=== PATIENT | male | born 1980 | race American Indian/Alaskan Native ===

== ENCOUNTER 2019-02-16 19:08 | Emergency (ER) | payer OTHER ==
[2019-02-16 20:00] LABS: Basophils # (Auto) 0.1 K/mm3 (0.0-0.1); Eosinophils % (Auto) 0.4 % (0.0-4.3); Hematocrit 40.8 % (35.5-45.6); Lymphocytes # (Auto) 2.3 K/mm3 (1.2-5.4); Lymphocytes % (Auto) 43.2 % (13.4-35.0); Mean Corpuscular HGB Conc 34 % (32-34); Mean Corpuscular Volume 94 fl (84-94); Monocytes # (Auto) 0.4 K/mm3 (0.0-0.8); Monocytes % (Auto) 7.2 % (0.0-7.3); Platelet Count 308 K/mm3 (140-440); Red Blood Count 4.33 M/mm3 (3.65-5.03); Red Cell Distribution Width 14.3 % (13.2-15.2)
[2019-02-16 20:13] LABS: Alanine Aminotransferase 130 units/L (7-56); Albumin 4.5 g/dL (3.9-5); BUN/Creatinine Ratio 9; Blood Urea Nitrogen 8 mg/dL (9-20); Calcium 8.8 mg/dL (8.4-10.2); Hemolysis Index 29
[2019-02-16 21:44] LABS: Bilirubin,Urine NEG (Negative); Blood,Urine NEG (Negative); Color,Urine Straw (Yellow); Mucus,Urine FEW /HPF; Protein,Urine <15 mg/dL mg/dL (Negative); Urobilinogen,Urine < 2.0 mg/dL (<2.0); WBC,Urine < 1.0 /HPF (0.0-6.0)
[2019-02-16] MEDS ORDERED: PEPCID IV ONE (21:49)
[2019-02-16] MEDS ORDERED: LIBRIUM PO ONE (21:49)
[2019-02-16] MEDS ORDERED: NACL 0.9% 1000 ML 1,000 ML IV ONE (21:49)
[2019-02-16] MEDS ORDERED: ZOFRAN IV ONE (21:49)
[2019-02-16] MEDS ORDERED: MORPHINE IV ONE (21:49)
--- NOTE | 2019-02-16 21:53 | Emergency Department Report ---
ED Abdominal Pain HPI - General Chief Complaint: Abdominal Pain Stated Complaint: ABD PAIN X 6 MONTHS Time Seen by Provider: 02/16/19 21:48 Source: patient Mode of arrival: Ambulatory Limitations: No Limitations - History of Present Illness Initial Comments: Mr. Lee is a 39-year-old male with history of alcohol abuse who presents with 6 months of abdominal pain. Recently he had several episodes of hematemesis. He now has severe central abdominal pain. No association with food or drink. Last drink of beer 3 hours ago. 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 He admitted that alcohol was the reason for his current unemployment. He drinks beer throughout the day. He even drinks in morning upon awakening. Now he drinks to keep the shakes away. He currently feels shaky. There is a history of alcoholism in the family. He does smoke tobacco. MD Complaint: abdominal pain -: Gradual, month(s) (6) Location: diffuse Radiation: none Severity: severe Quality: cramping, stabbing, aching Consistency: intermittent Improves With: nothing, bowel movement Associated Symptoms: nausea, vomiting, hematemesis - Related Data Previous Rx's Medication Instructions Recorded Last Taken Type HYDROcodone/APAP 5-325 [[place] 1 each PO Q6HR PRN #14 tablet 03/16/16 Unknown Rx 5/325] Lansoprazole [Prevacid] 15 mg PO BID #30 cap 03/16/16 Unknown Rx Famotidine [Pepcid] 20 mg PO BID 30 Days #60 tablet 02/16/19 Unknown Rx chlordiazePOXIDE [Librium] 25 mg PO Q6H 7 Days #28 capsule 02/16/19 Unknown Rx Allergies Allergy/AdvReac Type Severity Reaction Status Date / Time No Known Allergies Allergy Verified 03/16/16 00:51 ED Review of Systems ROS: Stated complaint: ABD PAIN X 6 MONTHS Other details as noted in HPI Comment: All other systems reviewed and negative Constitutional: denies: fever, malaise Respiratory: denies: cough Cardiovascular: denies: chest pain Gastrointestinal: abdominal pain, nausea, vomiting, hematemesis ED Past Medical Hx - Past Medical History Previous Medical History?: No - Surgical History Past Surgical History?: No - Social History Smoking Status: Current Every Day Smoker Substance Use Type: Alcohol, Cocaine, Marijuana - Medications Home Medications: Home Medications Medication Instructions Recorded Confirmed Last Taken Type HYDROcodone/APAP 5-325 [[place] 1 each PO Q6HR PRN #14 tablet 03/16/16 Unknown Rx 5/325] Lansoprazole [Prevacid] 15 mg PO BID #30 cap 03/16/16 Unknown Rx Famotidine [Pepcid] 20 mg PO BID 30 Days #60 tablet 02/16/19 Unknown Rx chlordiazePOXIDE [Librium] 25 mg PO Q6H 7 Days #28 capsule 02/16/19 Unknown Rx ED Physical Exam - General Limitations: No Limitations General appearance: alert, in no apparent distress - Head Head exam: Present: atraumatic, normocephalic - Eye Eye exam: Present: normal appearance - ENT ENT exam: Present: mucous membranes moist - Neck Neck exam: Present: normal inspection, full ROM - Respiratory Respiratory exam: Present: normal lung sounds bilaterally. Absent: respiratory distress, wheezes, rales, rhonchi - Cardiovascular Cardiovascular Exam: Present: regular rate, normal rhythm, normal heart sounds. Absent: systolic murmur, diastolic murmur, rubs, gallop - GI/Abdominal GI/Abdominal exam: Present: soft, normal bowel sounds. Absent: distended, tenderness, guarding - Rectal Rectal exam: Present: deferred - Extremities Exam Extremities exam: Present: normal inspection - Back Exam Back exam: Present: normal inspection - Neurological Exam Neurological exam: Present: alert, oriented X3 - Psychiatric Psychiatric exam: Present: normal affect, normal mood - Skin Skin exam: Present: warm, dry, intact, normal color. Absent: rash ED Course Vital Signs 02/16/19 02/16/19 02/16/19 19:24 21:47 21:51 Temperature 98.4 F Pulse Rate 95 H Respiratory 20 18 Rate Blood Pressure 140/79 Blood Pressure [Left] O2 Sat by Pulse 97 98 98 Oximetry 02/16/19 02/16/19 02/16/19 21:55 22:00 22:20 Temperature 98.6 F Pulse Rate 76 71 Respiratory 14 18 Rate Blood Pressure 112/70 112/70 Blood Pressure 124/68 [Left] O2 Sat by Pulse 99 95 99 Oximetry 02/16/19 02/16/19 02/16/19 22:30 22:46 22:47 Temperature Pulse Rate Respiratory 18 Rate Blood Pressure 113/67 118/73 Blood Pressure [Left] O2 Sat by Pulse 92 100 Oximetry ED Medical Decision Making - Lab Data Result diagrams: 02/16/19 19:42 02/16/19 19:42 - Radiology Data Radiology results: report reviewed CT abdomen and pelvis without acute process - Medical Decision Making Mr. Lee presents with 6 months of nausea vomiting. Transient hematemesis. I suspect alcoholic gastritis as the cause of his symptoms. Also early alcoholic liver disease noted with elevated transaminases. I strongly suggested cessation of alcohol use. Complete abstinence. I also recommended outpatient alcohol substance abuse treatment. Prescribed Librium for alcohol withdrawal symptoms, famotidine for possible peptic ulcer disease. Critical care attestation.: If time is entered above; I have spent that time in minutes in the direct care of this critically ill patient, excluding procedure time. ED Disposition Clinical Impression: Alcoholic liver disease, Alcoholism, Alcoholic gastritis Disposition: - TO HOME OR SELFCARE Is pt being admited?: No Does the pt Need Aspirin: No Condition: Stable Instructions: Abuse of Alcohol (ED), Gastritis (ED) Additional Instructions: Your labs reveal liver damage. Please seek help for alcoholism. Prescriptions: chlordiazePOXIDE [Librium] 25 mg PO Q6H 7 Days #28 capsule Famotidine [Pepcid] 20 mg PO BID 30 Days #60 tablet Referrals: CHAZ ODONNELL MD [Primary Care Provider] - 3-5 Days
[2019-02-16 22:49] VITALS: BP 118/73
--- NOTE | 2019-02-16 22:58 | Cat Scan Report ---
PROCEDURE: CT abdomen and pelvis without contrast. TECHNIQUE: Computerized axial tomography of the abdomen and pelvis was performed without intravenous contrast. This study is performed without intravascular contrast material and its sensitivity for ab dominal and pelvic pathology, including neoplasms, inflammation, abscess, free fluid, thrombosis, art erial dissection and infarction, is reduced compared with a contrast enhanced study. CT DOSE LENGTH PRODUCT: 604.8 mGycm HISTORY: Abdominal pain. COMPARISONS: CT abdomen and pelvis 03/15/2016. Dictation not available. FINDINGS: The lung bases are clear. There are no pleural effusions. The heart size is normal. The liver, pancre as and spleen are grossly normal. The gallbladder is present. There is no biliary dilatation. The adr enal glands are not enlarged. Both kidneys appear normal in size and configuration. The abdominal aor ta has a normal caliber. There is no retroperitoneal adenopathy. The unopacified gastrointestinal tra ct is unremarkable. I believe there is a normal appendix visible. The bladder, seminal vesicles and p rostate appear normal. The regional skeleton appears intact. IMPRESSION: Normal unenhanced studies of the abdomen and pelvis. This document is electronically signed by Yvan Black MD., February 16 2019 10:56:51 PM ET
== END 2019-02-17 01:52 | disposition home or self-care (01) ==
LOC: ED 19:08
DX: K29.20 Alcoholic gastritis without bleeding (principal); K70.9 Alcoholic liver disease, unspecified; F17.200 Nicotine dependence, unspecified, uncomplicated; F12.10 Cannabis abuse, uncomplicated; F14.10 Cocaine abuse, uncomplicated; Z79.899 Other long term (current) drug therapy
CPT/HCPCS: 36415; 74176; 80053; 81001; 83690; 85025; 96361; 96374; 96375; 99284; J2270; J2405; J7030

== ENCOUNTER 2019-03-09 23:17 | Emergency (ER) | payer SELFPAY ==
[2019-03-10 00:09] LABS: Basophils % (Auto) 0.2 % (0.0-1.8); Eosinophils % (Auto) 0.6 % (0.0-4.3); Hematocrit 40.8 % (35.5-45.6); Hemoglobin 13.8 gm/dl (11.8-15.2); Lymphocytes % (Auto) 40.4 % (13.4-35.0); Mean Corpuscular HGB Conc 34 % (32-34); Mean Corpuscular Hemoglobin 32 pg (28-32); Mean Corpuscular Volume 94 fl (84-94); Monocytes # (Auto) 0.4 K/mm3 (0.0-0.8); Monocytes % (Auto) 7.7 % (0.0-7.3); Platelet Count 310 K/mm3 (140-440); Red Blood Count 4.33 M/mm3 (3.65-5.03); Red Cell Distribution Width 14.7 % (13.2-15.2)
[2019-03-10] MEDS ORDERED: PROTONIX IV ONE (00:11)
[2019-03-10 00:26] LABS: Alanine Aminotransferase 38 units/L (7-56); Albumin 4.5 g/dL (3.9-5); BUN/Creatinine Ratio 11; Blood Urea Nitrogen 10 mg/dL (9-20); Calcium 8.9 mg/dL (8.4-10.2); Hemolysis Index 21
[2019-03-10] MEDS ORDERED: NACL 0.9% 1000 ML 1,000 ML IV ONE (01:35)
[2019-03-10] MEDS ORDERED: LIBRIUM PO PRN (01:35)
[2019-03-10] MEDS ORDERED: ATIVAN IV PRN ×3 (01:35)
--- NOTE | 2019-03-10 01:43 | Cat Scan Report ---
CT ABDOMEN AND PELVIS WITHOUT CONTRAST HISTORY: Lower abdominal pain with nausea and vomiting. COMPARISON: CT of the abdomen and pelvis without contrast from 02/16/2019. TECHNIQUE: Axial, coronal and sagittal CT imaging of the abdomen and pelvis was performed without co ntrast. Lack of intravenous contrast limits evaluation of the vascular and solid organs. All CT sca ns at this location are performed using CT dose reduction for ALARA by means of automated exposure co ntrol. FINDINGS: LOWER CHEST: No significant abnormality. LIVER: Enlarged without an additional significant abnormality. BILIARY: No significant abnormality. PANCREAS: No significant abnormality. SPLEEN: Small than expected for a patient of this age without an additional significant abnormality. ADRENALS: No significant abnormality. KIDNEYS AND URETERS: No significant abnormality. GI TRACT: No significant abnormality of the stomach, small bowel or colon. Unremarkable appendix. PERITONEUM: No free fluid. No free air. No fluid collection. LYMPH NODES: No significant adenopathy. VASCULATURE: The aorta is normal in caliber. URINARY BLADDER: No significant abnormality. REPRODUCTIVE ORGANS: No significant abnormality. ADDITIONAL FINDINGS: None. SKELETAL SYSTEM: No significant abnormality. IMPRESSION: No acute abnormality of the abdomen or pelvis. Signer Name: Jesus Liu MD Signed: 03/10/2019 1:39 AM Workstation Name: [id number]
--- NOTE | 2019-03-10 01:52 | Emergency Department Report ---
ED General Adult HPI - General Chief complaint: Abdominal Pain Stated complaint: ABD PAIN Time Seen by Provider: 03/09/19 23:32 Source: patient, EMS Mode of arrival: Stretcher Limitations: No Limitations - History of Present Illness Initial comments: Patient presents to the emergency department with a chief complaint alcohol abuse. Patient states he drinks 324 ounce cans of beer daily and wants to stop drinking. Patient states at times he feels that the world be better without them. Patient states that he is also having some abdominal pain and one episode of emesis with blood in it today. Patient is asking for detox from alcohol. -: Gradual Location: abdomen Radiation: non-radiation Severity scale (0 -10): 5 Quality: burning Consistency: constant Improves with: none Worsens with: none Associated Symptoms: denies other symptoms Treatments Prior to Arrival: none - Related Data Previous Rx's Medication Instructions Recorded Last Taken Type HYDROcodone/APAP 5-325 [[place] 1 each PO Q6HR PRN #14 tablet 03/16/16 Unknown Rx 5/325] Lansoprazole [Prevacid] 15 mg PO BID #30 cap 03/16/16 Unknown Rx Famotidine [Pepcid] 20 mg PO BID 30 Days #60 tablet 02/16/19 Unknown Rx chlordiazePOXIDE [Librium] 25 mg PO Q6H 7 Days #28 capsule 02/16/19 Unknown Rx Allergies Allergy/AdvReac Type Severity Reaction Status Date / Time No Known Allergies Allergy Verified 03/16/16 00:51 ED Review of Systems ROS: Stated complaint: ABD PAIN Other details as noted in HPI Comment: All other systems reviewed and negative Constitutional: denies: chills, fever Eyes: denies: eye pain, eye discharge, vision change ENT: denies: ear pain, throat pain Respiratory: denies: cough, shortness of breath, wheezing Cardiovascular: denies: chest pain, palpitations Endocrine: no symptoms reported Gastrointestinal: abdominal pain. denies: nausea, diarrhea Genitourinary: denies: urgency, dysuria Musculoskeletal: denies: back pain, joint swelling, arthralgia Skin: denies: rash, lesions Neurological: denies: headache, weakness, paresthesias Psychiatric: denies: anxiety, depression Hematological/Lymphatic: denies: easy bleeding, easy bruising ED Past Medical Hx - Past Medical History Hx Liver Disease: Yes - Surgical History Past Surgical History?: No - Social History Smoking Status: Current Every Day Smoker Substance Use Type: Alcohol, Cocaine - Medications Home Medications: Home Medications Medication Instructions Recorded Confirmed Last Taken Type HYDROcodone/APAP 5-325 [[place] 1 each PO Q6HR PRN #14 tablet 03/16/16 Unknown Rx 5/325] Lansoprazole [Prevacid] 15 mg PO BID #30 cap 03/16/16 Unknown Rx Famotidine [Pepcid] 20 mg PO BID 30 Days #60 tablet 02/16/19 Unknown Rx chlordiazePOXIDE [Librium] 25 mg PO Q6H 7 Days #28 capsule 02/16/19 Unknown Rx ED Physical Exam - General Limitations: No Limitations General appearance: alert, in no apparent distress, other (patient appears very intoxicated) - Head Head exam: Present: atraumatic, normocephalic - Eye Eye exam: Present: normal appearance - ENT ENT exam: Present: mucous membranes dry - Neck Neck exam: Present: normal inspection - Respiratory Respiratory exam: Present: normal lung sounds bilaterally. Absent: respiratory distress - Cardiovascular Cardiovascular Exam: Present: regular rate, normal rhythm. Absent: systolic murmur, diastolic murmur, rubs, gallop - GI/Abdominal GI/Abdominal exam: Present: soft, normal bowel sounds. Absent: distended, tenderness - Rectal Rectal exam: Present: deferred - Extremities Exam Extremities exam: Present: normal inspection - Back Exam Back exam: Present: normal inspection - Neurological Exam Neurological exam: Present: alert, oriented X3, CN II-XII intact. Absent: motor sensory deficit - Psychiatric Psychiatric exam: Present: normal affect, normal mood - Skin Skin exam: Present: warm, dry, intact, normal color. Absent: rash ED Course Vital Signs 03/09/19 03/09/19 03/10/19 23:31 23:32 00:00 Temperature 98.2 F Pulse Rate 94 H 84 Respiratory 16 15 Rate Blood Pressure 122/81 O2 Sat by Pulse 97 97 Oximetry 03/10/19 03/10/19 00:30 00:54 Temperature Pulse Rate 98 H Respiratory 12 17 Rate Blood Pressure 116/74 O2 Sat by Pulse 97 100 Oximetry ED Medical Decision Making - Lab Data Result diagrams: 03/09/19 23:45 03/09/19 23:45 Lab Results 07/19/19 07/19/19 07/19/19 Range/Units 23:45 23:45 23:45 WBC 5.0 (4.5-11.0) K/mm3 RBC 4.33 (3.65-5.03) M/mm3 Hgb 13.8 (11.8-15.2) gm/dl Hct 40.8 (35.5-45.6) % MCV 94 (84-94) fl MCH 32 (28-32) pg MCHC 34 (32-34) % RDW 14.7 (13.2-15.2) % Plt Count 310 (140-440) K/mm3 Lymph % (Auto) 40.4 H (13.4-35.0) % [place] % (Auto) 7.7 H (0.0-7.3) % Eos % (Auto) 0.6 (0.0-4.3) % Baso % (Auto) 0.2 (0.0-1.8) % Lymph # 2.0 (1.2-5.4) K/mm3 [place] # 0.4 (0.0-0.8) K/mm3 Eos # 0.0 (0.0-0.4) K/mm3 Baso # 0.0 (0.0-0.1) K/mm3 Seg Neutrophils % 51.1 (40.0-70.0) % Seg Neutrophils # 2.6 (1.8-7.7) K/mm3 Sodium 145 (137-145) mmol/L Potassium 4.0 (3.6-5.0) mmol/L Chloride 105.2 (98-107) mmol/L Carbon Dioxide 24 (22-30) mmol/L Anion Gap 20 mmol/L BUN 10 (9-20) mg/dL Creatinine 0.9 (0.8-1.5) mg/dL Estimated GFR > 60 ml/min BUN/Creatinine Ratio 11 % Glucose 88 (75-100) mg/dL Calcium 8.9 (8.4-10.2) mg/dL Total Bilirubin 0.30 (0.1-1.2) mg/dL AST 52 H (5-40) units/L ALT 38 (7-56) units/L Alkaline Phosphatase 60 (35-129) units/L Total Protein 7.9 (6.3-8.2) g/dL Albumin 4.5 (3.9-5) g/dL Albumin/Globulin Ratio 1.3 % Lipase 20 (13-60) units/L Plasma/Serum Alcohol (0-0.07) % 03/10/19 Range/Units 00:17 WBC (4.5-11.0) K/mm3 RBC (3.65-5.03) M/mm3 Hgb (11.8-15.2) gm/dl Hct (35.5-45.6) % MCV (84-94) fl MCH (28-32) pg MCHC (32-34) % RDW (13.2-15.2) % Plt Count (140-440) K/mm3 Lymph % (Auto) (13.4-35.0) % [place] % (Auto) (0.0-7.3) % Eos % (Auto) (0.0-4.3) % Baso % (Auto) (0.0-1.8) % Lymph # (1.2-5.4) K/mm3 [place] # (0.0-0.8) K/mm3 Eos # (0.0-0.4) K/mm3 Baso # (0.0-0.1) K/mm3 Seg Neutrophils % (40.0-70.0) % Seg Neutrophils # (1.8-7.7) K/mm3 Sodium (137-145) mmol/L Potassium (3.6-5.0) mmol/L Chloride (98-107) mmol/L Carbon Dioxide (22-30) mmol/L Anion Gap mmol/L BUN (9-20) mg/dL Creatinine (0.8-1.5) mg/dL Estimated GFR ml/min BUN/Creatinine Ratio % Glucose (75-100) mg/dL Calcium (8.4-10.2) mg/dL Total Bilirubin (0.1-1.2) mg/dL AST (5-40) units/L ALT (7-56) units/L Alkaline Phosphatase (35-129) units/L Total Protein (6.3-8.2) g/dL Albumin (3.9-5) g/dL Albumin/Globulin Ratio % Lipase (13-60) units/L Plasma/Serum Alcohol 0.30 H (0-0.07) % - Medical Decision Making 2013 applied Placed on [facility] protocol Critical care attestation.: If time is entered above; I have spent that time in minutes in the direct care of this critically ill patient, excluding procedure time. ED Disposition Clinical Impression: Acute alcohol abuse Disposition: DC/TX-65 PSY HOSP/PSY UNIT Is pt being admited?: No Does the pt Need Aspirin: No Condition: Stable Instructions: Abuse of Alcohol (ED) Referrals: CHAZ ODONNELL MD [Primary Care Provider] - 3-5 Days
[2019-03-10 03:22] LABS: Bilirubin,Urine NEG (Negative); Blood,Urine NEG (Negative); Color,Urine Yellow (Yellow); Mucus,Urine FEW /HPF; Protein,Urine <15 mg/dL mg/dL (Negative); RBC,Urine < 1.0 /HPF (0.0-6.0); Urobilinogen,Urine < 2.0 mg/dL (<2.0)
[2019-03-10 15:33] VITALS: BP 128/78
== END 2019-03-10 15:00 | disposition home or self-care (01) ==
LOC: ED 23:17
DX: F10.120 Alcohol abuse with intoxication, uncomplicated (principal); F17.200 Nicotine dependence, unspecified, uncomplicated; F14.10 Cocaine abuse, uncomplicated
CPT/HCPCS: 36415; 74176; 80053; 81001; 83690; 85025; 96361; 96374; 96375; 99285; C9113; J2060; 80320; G0480

== ENCOUNTER 2019-03-12 02:55 | Emergency (ER) | payer SELFPAY ==
[2019-03-12 04:26] LABS: Basophils # (Auto) 0.2 K/mm3 (0.0-0.1); Basophils % (Auto) 2.9 % (0.0-1.8); Eosinophils # (Auto) 0.1 K/mm3 (0.0-0.4); Hematocrit 38.6 % (35.5-45.6); Hemoglobin 13.5 gm/dl (11.8-15.2); Lymphocytes # (Auto) 2.6 K/mm3 (1.2-5.4); Lymphocytes % (Auto) 36.9 % (13.4-35.0); Mean Corpuscular HGB Conc 35 % (32-34); Mean Corpuscular Volume 95 fl (84-94); Monocytes # (Auto) 0.3 K/mm3 (0.0-0.8); Monocytes % (Auto) 3.6 % (0.0-7.3); Platelet Count 315 K/mm3 (140-440); Red Blood Count 4.05 M/mm3 (3.65-5.03); Red Cell Distribution Width 14.2 % (13.2-15.2)
[2019-03-12 04:35] LABS: INR 1.03 (0.87-1.13)
[2019-03-12 04:36] LABS: Partial Thromboplastin Time 23.7 Sec. (24.2-36.6)
[2019-03-12 04:40] LABS: BUN/Creatinine Ratio 11; Blood Urea Nitrogen 10 mg/dL (9-20); Calcium 8.6 mg/dL (8.4-10.2); Hemolysis Index 11
[2019-03-12] MEDS ORDERED: VITAMIN B-1 100 MG, FOLVITE 1 MG, INFUVITE 10 ML in NACL 0.9% 1000 ML 1,000 ML IV ONE (04:48)
[2019-03-12] MEDS ORDERED: MAGNESIUM SULFATE 2GM/50ML 2 GM/50 ML BAG IV ONE (04:48)
--- NOTE | 2019-03-12 06:18 | Emergency Department Report ---
ED GI Bleed HPI - General Chief complaint: GI Bleed Stated complaint: VOMITING BLOOD Time Seen by Provider: 03/12/19 06:09 Source: patient, EMS Mode of arrival: Wheelchair Limitations: No Limitations - History of Present Illness Initial comments: 39-year-old male with a history of chronic alcoholism apparently presented to the emergency department stating that he vomited dark red blood. This is his second visit on 2 successive days. On my encounter he simply does not want to wake up. He lays there and does not provide any historical information. He is able to respond. I do note his alcohol level to be 0.21. He continues to abuse alcohol despite his frequent complaints of abdominal pain. I don't know if he has ever had an EGD. However, he is both hemodynamically stable and has a normal hemoglobin at this time. Further information may be forthcoming when the patient decides to cooperate. - Related Data Previous Rx's Medication Instructions Recorded Last Taken Type HYDROcodone/APAP 5-325 [[place] 1 each PO Q6HR PRN #14 tablet 03/16/16 Unknown Rx 5/325] Famotidine [Pepcid] 20 mg PO BID 30 Days #60 tablet 02/16/19 Unknown Rx chlordiazePOXIDE [Librium] 25 mg PO Q6H 7 Days #28 capsule 02/16/19 Unknown Rx Multivitamin with Folic Acid [[facility] 400 mcg PO QDAY #30 tablet 03/10/19 Unknown Rx One Daily Essential Tablet] chlordiazePOXIDE [Librium] 25 mg PO Q6H PRN #25 capsule 03/10/19 Unknown Rx Lansoprazole [Prevacid] 15 mg PO BID #30 cap 03/12/19 Unknown Rx Allergies Allergy/AdvReac Type Severity Reaction Status Date / Time No Known Allergies Allergy Verified 03/16/16 00:51 ED Review of Systems ROS: Stated complaint: VOMITING BLOOD Other details as noted in HPI Comment: Unobtainable due to pts medical conditions ED Past Medical Hx - Past Medical History Previous Medical History?: Yes Hx Liver Disease: Yes - Surgical History Past Surgical History?: No - Social History Smoking Status: Current Every Day Smoker Substance Use Type: Alcohol - Medications Home Medications: Home Medications Medication Instructions Recorded Confirmed Last Taken Type HYDROcodone/APAP 5-325 [[place] 1 each PO Q6HR PRN #14 tablet 03/16/16 Unknown Rx 5/325] Famotidine [Pepcid] 20 mg PO BID 30 Days #60 tablet 02/16/19 Unknown Rx chlordiazePOXIDE [Librium] 25 mg PO Q6H 7 Days #28 capsule 02/16/19 Unknown Rx Multivitamin with Folic Acid [[facility] 400 mcg PO QDAY #30 tablet 03/10/19 Unknown Rx One Daily Essential Tablet] chlordiazePOXIDE [Librium] 25 mg PO Q6H PRN #25 capsule 03/10/19 Unknown Rx Lansoprazole [Prevacid] 15 mg PO BID #30 cap 03/12/19 Unknown Rx ED Physical Exam - General Limitations: Altered Mental Status General appearance: in no apparent distress, lethargic - Head Head exam: Present: atraumatic, normocephalic - Eye Eye exam: Present: normal appearance. Absent: scleral icterus - ENT ENT exam: Present: mucous membranes moist - Neck Neck exam: Present: normal inspection - Respiratory Respiratory exam: Present: normal lung sounds bilaterally. Absent: respiratory distress - Cardiovascular Cardiovascular Exam: Present: regular rate, normal rhythm. Absent: systolic murmur, diastolic murmur, rubs, gallop - GI/Abdominal GI/Abdominal exam: Present: soft, tenderness (vaguely diffuse poorly localized), normal bowel sounds. Absent: distended, guarding, rebound, rigid - Rectal Rectal exam: Present: deferred - Extremities Exam Extremities exam: Present: normal inspection - Back Exam Back exam: Present: normal inspection - Neurological Exam Neurological exam: Present: altered (lethargic unwilling to cooperate), other (no apparent focal deficit) - Psychiatric Psychiatric exam: Present: normal affect, normal mood - Skin Skin exam: Present: warm, dry, intact, normal color. Absent: rash ED Course Vital Signs 03/12/19 03/12/19 03/12/19 03:08 03:48 04:00 Temperature 97.9 F Pulse Rate 87 73 74 Respiratory 18 14 12 Rate Blood Pressure 111/74 115/68 Blood Pressure [Right] O2 Sat by Pulse 94 96 96 Oximetry 03/12/19 03/12/19 03/12/19 04:15 04:30 04:45 Temperature Pulse Rate 70 68 69 Respiratory 15 15 14 Rate Blood Pressure 115/68 100/57 115/68 Blood Pressure [Right] O2 Sat by Pulse 96 94 97 Oximetry 03/12/19 03/12/19 03/12/19 05:00 05:15 05:30 Temperature Pulse Rate 65 70 67 Respiratory 22 14 14 Rate Blood Pressure 99/57 100/57 101/54 Blood Pressure [Right] O2 Sat by Pulse 97 97 94 Oximetry 03/12/19 03/12/19 03/12/19 05:36 05:45 06:00 Temperature Pulse Rate 70 66 Respiratory 18 15 13 Rate Blood Pressure 101/54 98/53 Blood Pressure [Right] O2 Sat by Pulse 97 95 Oximetry 03/12/19 03/12/19 03/12/19 06:15 06:30 06:45 Temperature Pulse Rate 69 Respiratory 21 Rate Blood Pressure 101/54 98/52 98/52 Blood Pressure [Right] O2 Sat by Pulse 94 96 97 Oximetry 03/12/19 03/12/19 03/12/19 07:00 07:15 07:30 Temperature Pulse Rate Respiratory Rate Blood Pressure 99/55 99/55 106/54 Blood Pressure [Right] O2 Sat by Pulse 97 96 95 Oximetry 03/12/19 03/12/19 03/12/19 07:45 08:00 08:03 Temperature Pulse Rate 75 Respiratory 18 Rate Blood Pressure 106/54 108/57 Blood Pressure 108/64 [Right] O2 Sat by Pulse 91 96 100 Oximetry 03/12/19 03/12/19 03/12/19 08:15 08:30 08:45 Temperature Pulse Rate Respiratory Rate Blood Pressure 106/54 98/56 98/56 Blood Pressure [Right] O2 Sat by Pulse 95 94 94 Oximetry 03/12/19 03/12/19 03/12/19 09:00 09:15 09:30 Temperature Pulse Rate Respiratory Rate Blood Pressure 99/65 98/56 101/67 Blood Pressure [Right] O2 Sat by Pulse 95 93 94 Oximetry 03/12/19 03/12/19 03/12/19 09:45 10:01 10:15 Temperature Pulse Rate Respiratory Rate Blood Pressure 101/67 101/67 111/73 Blood Pressure [Right] O2 Sat by Pulse 93 97 97 Oximetry - Reevaluation(s) Reevaluation #1: I reexamined this patient several times. His vital signs are stable. He is no distress. He is appropriate for outpatient disposition. He will be referred to [facility] for his alcohol abuse. He'll be placed on lansoprazole. He is given return criteria. He is referred to [facility]. He is counseled at against further gastric irritants. 03/12/19 10:24 ED Medical Decision Making - Lab Data Result diagrams: 03/12/19 03:53 03/12/19 03:53 Laboratory Results - last 24 hr 03/12/19 03/12/19 03/12/19 03:53 03:53 03:53 WBC 7.0 RBC 4.05 Hgb 13.5 Hct 38.6 MCV 95 H MCH 33 H MCHC 35 H RDW 14.2 Plt Count 315 Lymph % (Auto) 36.9 H [place] % (Auto) 3.6 Eos % (Auto) 1.0 Baso % (Auto) 2.9 H Lymph # 2.6 [place] # 0.3 Eos # 0.1 Baso # 0.2 H Seg Neutrophils % 55.6 Seg Neutrophils # 3.9 PT 13.2 INR 1.03 APTT 23.7 L Sodium 136 L D Potassium 3.6 Chloride 100.6 Carbon Dioxide 19 L Anion Gap 20 BUN 10 Creatinine 0.9 Estimated GFR > 60 BUN/Creatinine Ratio 11 Glucose 103 H Calcium 8.6 Plasma/Serum Alcohol 03/12/19 03:53 WBC RBC Hgb Hct MCV MCH MCHC RDW Plt Count Lymph % (Auto) [place] % (Auto) Eos % (Auto) Baso % (Auto) Lymph # [place] # Eos # Baso # Seg Neutrophils % Seg Neutrophils # PT INR APTT Sodium Potassium Chloride Carbon Dioxide Anion Gap BUN Creatinine Estimated GFR BUN/Creatinine Ratio Glucose Calcium Plasma/Serum Alcohol 0.21 H Critical care attestation.: If time is entered above; I have spent that time in minutes in the direct care of this critically ill patient, excluding procedure time. ED Disposition Clinical Impression: Acute alcohol abuse Gastritis Qualifiers: Gastritis type: unspecified gastritis Chronicity: acute Gastritis bleeding: presence of bleeding unspecified Qualified Code(s): K29.00 - Acute gastritis without bleeding Disposition: OP ADMIT IP TO THIS HOSP Is pt being admited?: No Does the pt Need Aspirin: No Condition: Stable Instructions: Abuse of Alcohol (ED), Gastritis (ED) Additional Instructions: Avoid alcohol use, aspirin, medicines that irritate the stomach lining. Return as needed any signs of further vomiting or bleeding. Follow-up [facility] and [facility]. Prescriptions: Lansoprazole [Prevacid] 15 mg PO BID #30 cap Referrals: [facility] [Outside] - 3-5 Days [facility] [Outside] - 3-5 Days Forms: Accompanied Note Time of Disposition: 10:26
[2019-03-12] MEDS ORDERED: PROTONIX PO ONE (10:28)
[2019-03-12] MEDS ORDERED: TYLENOL PO ONE (10:28)
[2019-03-12 11:36] VITALS: BP 119/62
== END 2019-03-12 11:35 | disposition admitted as inpatient to this hospital (09) ==
LOC: ED 02:55
DX: K29.70 Gastritis, unspecified, without bleeding (principal); F10.10 Alcohol abuse, uncomplicated; F17.200 Nicotine dependence, unspecified, uncomplicated; Z79.899 Other long term (current) drug therapy; Y90.0 Blood alcohol level of less than 20 mg/100 ml
CPT/HCPCS: 36415; 80048; 85025; 85610; 85730; 96365; 96368; 99283; J3411; J3475; J7030; 80320; G0480

== ENCOUNTER 2019-03-16 03:47 | Emergency (ER) | payer SELFPAY ==
[2019-03-16 04:57] LABS: Basophils % (Auto) 0.4 % (0.0-1.8); Eosinophils # (Auto) 0.1 K/mm3 (0.0-0.4); Eosinophils % (Auto) 0.7 % (0.0-4.3); Hematocrit 41.5 % (35.5-45.6); Hemoglobin 14.2 gm/dl (11.8-15.2); Lymphocytes # (Auto) 3.1 K/mm3 (1.2-5.4); Lymphocytes % (Auto) 42.8 % (13.4-35.0); Mean Corpuscular HGB Conc 34 % (32-34); Mean Corpuscular Volume 95 fl (84-94); Monocytes # (Auto) 0.4 K/mm3 (0.0-0.8); Platelet Count 299 K/mm3 (140-440); Red Blood Count 4.36 M/mm3 (3.65-5.03); Red Cell Distribution Width 14.8 % (13.2-15.2)
[2019-03-16 05:20] LABS: Calcium 9.4 mg/dL (8.4-10.2); Hemolysis Index 18
[2019-03-16 05:22] LABS: Amphetamine Screen,Urine PRESUMPTIVE NEGATIVE; Cannabinoid Screen,Urine PRESUMPTIVE NEGATIVE; Methadone Screen,Urine PRESUMPTIVE NEGATIVE; Opiate Screen,Urine PRESUMPTIVE NEGATIVE
[2019-03-16 05:47] LABS: Bilirubin,Urine NEG (Negative); Blood,Urine NEG (Negative); Color,Urine Yellow (Yellow); Hyaline Casts,Urine 10 /LPF; Mucus,Urine FEW /HPF; Protein,Urine <15 mg/dL mg/dL (Negative); Urobilinogen,Urine < 2.0 mg/dL (<2.0); WBC,Urine < 1.0 /HPF (0.0-6.0)
[2019-03-16 05:55] LABS: Benzodiazepines Screen,Urine PRESUMPTIVE POSITIVE; Cocaine Screen,Urine PRESUMPTIVE POSITIVE
[2019-03-16 06:14] LABS: BUN/Creatinine Ratio 8; Blood Urea Nitrogen 8 mg/dL (9-20)
--- NOTE | 2019-03-16 07:17 | Emergency Department Report ---
ED Alcohol HPI - General Chief Complaint: Alcohol Stated Complaint: ALCOHOLISM REHAB Time Seen by Provider: 03/16/19 06:42 Source: patient, EMS Mode of arrival: Stretcher Limitations: No Limitations - History of Present Illness Initial Comments: 39-year-old presents here requesting alcohol rehab. Patient reports he drinks beer daily. Patient also reports chronic abdominal pain for which he has been evaluated in the past. He also reports one episode of hematemesis prior to ED arrival. Patient was seen 6 days ago for same, had unremarkable labs including normal hemoglobin, CT scan with no acute abnormalities. Patient has not followed up, but has continued to drink. States last drink was at 4 PM. MD Complaint: alcohol dependence, desires rehab Time Since Last Drink: 15 -: hour(s) Chronic Alcohol Use: Yes Previous Visits for Alcohol Intoxication?: Yes Recent Trauma: No Associated Symptoms: vomiting, abdominal pain - Related Data Previous Rx's Medication Instructions Recorded Last Taken Type HYDROcodone/APAP 5-325 [[place] 1 each PO Q6HR PRN #14 tablet 03/16/16 Unknown Rx 5/325] Famotidine [Pepcid] 20 mg PO BID 30 Days #60 tablet 02/16/19 Unknown Rx chlordiazePOXIDE [Librium] 25 mg PO Q6H 7 Days #28 capsule 02/16/19 Unknown Rx Multivitamin with Folic Acid [[facility] 400 mcg PO QDAY #30 tablet 03/10/19 Unknown Rx One Daily Essential Tablet] chlordiazePOXIDE [Librium] 25 mg PO Q6H PRN #25 capsule 03/10/19 Unknown Rx Lansoprazole [Prevacid] 15 mg PO BID #30 cap 03/12/19 Unknown Rx Allergies Allergy/AdvReac Type Severity Reaction Status Date / Time No Known Allergies Allergy Verified 03/16/16 00:51 ED Review of Systems ROS: Stated complaint: ALCOHOLISM REHAB Other details as noted in HPI Comment: All other systems reviewed and negative Gastrointestinal: abdominal pain, nausea, vomiting, hematemesis Psychiatric: denies: auditory hallucinations, visual hallucinations, homicidal thoughts, suicidal thoughts ED Past Medical Hx - Past Medical History Previous Medical History?: Yes Hx Liver Disease: Yes - Surgical History Past Surgical History?: No - Social History Smoking Status: Current Every Day Smoker Substance Use Type: Alcohol - Medications Home Medications: Home Medications Medication Instructions Recorded Confirmed Last Taken Type HYDROcodone/APAP 5-325 [[place] 1 each PO Q6HR PRN #14 tablet 03/16/16 Unknown Rx 5/325] Famotidine [Pepcid] 20 mg PO BID 30 Days #60 tablet 02/16/19 Unknown Rx chlordiazePOXIDE [Librium] 25 mg PO Q6H 7 Days #28 capsule 02/16/19 Unknown Rx Multivitamin with Folic Acid [[facility] 400 mcg PO QDAY #30 tablet 03/10/19 Unknown Rx One Daily Essential Tablet] chlordiazePOXIDE [Librium] 25 mg PO Q6H PRN #25 capsule 03/10/19 Unknown Rx Lansoprazole [Prevacid] 15 mg PO BID #30 cap 03/12/19 Unknown Rx ED Physical Exam - General Limitations: No Limitations General appearance: alert, in no apparent distress - Head Head exam: Present: atraumatic, normocephalic - Eye Eye exam: Present: normal appearance, PERRL, EOMI - ENT ENT exam: Present: mucous membranes moist - Neck Neck exam: Present: normal inspection - Respiratory Respiratory exam: Present: normal lung sounds bilaterally. Absent: respiratory distress - Cardiovascular Cardiovascular Exam: Present: regular rate, normal rhythm - GI/Abdominal GI/Abdominal exam: Present: soft, tenderness (mild epigastric). Absent: distended - Extremities Exam Extremities exam: Present: normal inspection - Neurological Exam Neurological exam: Present: alert, oriented X3 - Psychiatric Psychiatric exam: Present: normal affect, normal mood. Absent: homicidal ideation, suicidal ideation - Skin Skin exam: Present: warm, dry, intact, normal color ED Course Vital Signs 03/16/19 03/16/19 03/16/19 04:08 06:36 08:05 Temperature 98.3 F 98.6 F Pulse Rate 86 64 59 L Respiratory 18 16 18 Rate Blood Pressure 115/66 Blood Pressure 107/68 107/63 [Right] O2 Sat by Pulse 99 97 98 Oximetry ED Medical Decision Making - Lab Data Result diagrams: 03/16/19 04:30 03/16/19 04:30 - Medical Decision Making Pt seen and evaluated by psych ship's master. Given outpatient info, rx for zoloft. However, pt requesting inpatient services. Will attempt placement. Pt is medically clear. 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 Hemoglobin and vitals are stable. Pt Will dispo per psych. - Differential Diagnosis alcoholic gastritis, substance abuse, depression Critical care attestation.: If time is entered above; I have spent that time in minutes in the direct care of this critically ill patient, excluding procedure time. ED Disposition Clinical Impression: Gastritis, Alcohol abuse, Polysubstance abuse, Depression Disposition: - TO HOME OR SELFCARE Is pt being admited?: No Condition: Stable Instructions: Gastritis (ED), Diet for Ulcers and Gastritis (ED), Depression (ED), Abuse of Alcohol (ED), Polysubstance Abuse (ED) Referrals: CHAZ ODONNELL MD [Primary Care Provider] - 3-5 Days [facility] [Provider Group] - 3[facility] - [facility]5 Days Time of Disposition: 10:42
[2019-03-16] MEDS ORDERED: LIDOCAINE VISCOUS 2% PO ONE (07:18)
[2019-03-16] MEDS ORDERED: ALUM-MAG HYDROX-SIMETH 200-200-20MG/5ML PO ONE (07:18)
[2019-03-16 08:06] VITALS: BP 107/63
[2019-03-16] MEDS ORDERED: ZOLOFT PO SCH (10:00)
--- NOTE | 2019-03-16 10:36 | Consultation ---
History of Present Illness - Reason for Consult Consult date: 03/16/19 Reason for consult: Mental Health Evaluation Requesting physician: MARIA VICTORIA HINES - Chief Complaint Chief complaint: "I want to stop drinking" - History of Present Psychiatric Illness 39 y.o. AA male who presented to the ER for ETOH. The patient was seen for similar reason 03/12/2019. Today the patient was calm and cooperative during the assessment. He stated that his alcohol consumption has increased the past couple of years because he is dealing with life stressors (financial and being unemployed). He stated that he was jailed a couple of years ago and lost his job along with "everything else." He acknowledged feeling hopeless recently, but denies suicidal thoughts or ideations when asked. He stated that he self medicat e with alcohol (etoh) to lessen his depression. He rate his depression 4/10, with 10 being the worse. He denies a hx of self harm , erratic sleep and a poor appetite. He denies SI/HI's and AVH's. He stated that he use recreational drugs "sometimes." He denies benzo use. Medications and Allergies Allergies Allergy/AdvReac Type Severity Reaction Status Date / Time No Known Allergies Allergy Verified 03/16/16 00:51 Home Medications Medication Instructions Recorded Confirmed Last Taken Type HYDROcodone/APAP 5-325 [[place] 1 each PO Q6HR PRN #14 tablet 03/16/16 Unknown Rx 5/325] Famotidine [Pepcid] 20 mg PO BID 30 Days #60 tablet 02/16/19 Unknown Rx chlordiazePOXIDE [Librium] 25 mg PO Q6H 7 Days #28 capsule 02/16/19 Unknown Rx Multivitamin with Folic Acid [[facility] 400 mcg PO QDAY #30 tablet 03/10/19 Unknown Rx One Daily Essential Tablet] chlordiazePOXIDE [Librium] 25 mg PO Q6H PRN #25 capsule 03/10/19 Unknown Rx Lansoprazole [Prevacid] 15 mg PO BID #30 cap 03/12/19 Unknown Rx Active Meds: Active Medications Sertraline HCl (Zoloft) 50 mg PO DAILY SHAYNE Past psychiatric history - Past Medical History Past Medical History: No medical history Past Surgical History: No surgical history - past Psychiatric treatment and history psychiatric treatment history: hx of Alcohol abuse. Fam hx of alcohol abuse. - Social History Social history: lives with family Mental Status Exam - Vital signs Last Vital Signs Temp 98.6 F 03/16/19 06:36 Pulse 59 L 03/16/19 08:05 Resp 18 03/16/19 08:05 BP 107/63 03/16/19 08:05 Pulse Ox 98 03/16/19 08:05 - Exam Narrative exam: MSE: Appearance: calm, cooperative Behavior: regular eye contact Speech: regular rate and tone Mood: "okay" Affect: congruent to mood Thought Process: linear Thought Content: denies SI/HI's and AVH's Motor Activity: sitting up in bed Cognition: A/O x3 Insight: fair Judgment: fair Results Result Diagrams: 03/16/19 04:30 03/16/19 04:30 Abnormal lab results 03/16/19 03/16/19 03/16/19 Range/Units 04:30 04:30 04:30 MCV (84-94) fl MCH (28-32) pg Lymph % (Auto) (13.4-35.0) % BUN 8 L (9-20) mg/dL Salicylates < 0.3 L (2.8-20.0) mg/dL Acetaminophen < 5.0 L (10.0-30.0) ug/mL Plasma/Serum Alcohol (0-0.07) % 03/16/19 03/16/19 Range/Units 04:30 04:30 MCV 95 H (84-94) fl MCH 33 H (28-32) pg Lymph % (Auto) 42.8 H (13.4-35.0) % BUN (9-20) mg/dL Salicylates (2.8-20.0) mg/dL Acetaminophen (10.0-30.0) ug/mL Plasma/Serum Alcohol 0.20 H (0-0.07) % All other labs normal. Assessment and Plan Assessment and plan: Impression: MDD. Alcohol Use DO. Substance Use DO (cocaine). Today the patient was calm, but still somewhat paranoid during the assessment. The patient was positive for benzos. DDx: Substance Induced Mood DO Recommendation/Plan: Continue CIWA. Start Zoloft 50 mg PO daily for depression. Discussed possible suicidality/medication induced [place] with the patient reference Zoloft, he verbalized understanding. Discussed the importance to abstain from both excessive alcohol consumption (etoh) and recreational drug use, he verbalized understanding. Dispo: The patient was placed on the [facility] for volunteer placement for rehab services. Also, the patient can follow up with [facility] for outpatient psy/rehab services. Staffed with Dr Tara Varela.
--- NOTE | 2019-03-16 10:56 | Progress Note ---
Subjective - Reason for Consult Consult date: 03/16/19 Reason for consult: Psychiatry Follow-up - Chief Complaint Chief complaint: "I want to stop drinking" Mental Status Exam - Vital signs Last Vital Signs Temp 98.6 F 03/16/19 06:36 Pulse 59 L 03/16/19 08:05 Resp 18 03/16/19 08:05 BP 107/63 03/16/19 08:05 Pulse Ox 98 03/16/19 08:05 - Exam Narrative exam: MSE: Appearance: calm, cooperative Behavior: regular eye contact Speech: regular rate and tone Mood: "okay" Affect: congruent to mood Thought Process: circumstantial Thought Content: denies SI/HI's and AVH's Motor Activity: sitting up in bed Cognition: A/O x3 Insight: fair Judgment: fair Assessment and Plan Impression: MDD. Alcohol Use DO. Substance Use DO (cocaine). Today the patient was calm, but still somewhat paranoid during the assessment. The patient was positive for benzos. DDx: Substance Induced Mood DO Recommendation/Plan: Start Zoloft 40 mg PO daily for depression. Discussed possible suicidality/medication induced [place] with the patient reference Zoloft, he verbalized understanding. Discussed the importance to abstain from both excessive alcohol consumption (etoh) and recreational drug use, he verbalized understanding. Dispo: The patient can follow up with [facility] for outpatient psy/rehab services. Will staff with Dr Tara Varela.
[2019-03-16] MEDS ORDERED: ATIVAN PO PRN ×2 (11:10)
[2019-03-16] MEDS ORDERED: TYLENOL PO PRN (11:34)
--- NOTE | 2019-03-17 13:35 | Progress Note ---
Mental Status Exam - Vital signs Last Vital Signs Temp 98.6 F 03/16/19 06:36 Pulse 59 L 03/16/19 08:05 Resp 18 03/16/19 08:05 BP 107/63 03/16/19 08:05 Pulse Ox 98 03/16/19 08:05
== END 2019-03-16 15:51 | disposition home or self-care (01) ==
LOC: EEVIPCON 03:47 → ED 03:47
DX: K29.70 Gastritis, unspecified, without bleeding (principal); F10.10 Alcohol abuse, uncomplicated; F19.10 Other psychoactive substance abuse, uncomplicated; F32.9 Major depressive disorder, single episode, unspecified; F17.200 Nicotine dependence, unspecified, uncomplicated; Z87.19 Personal history of other diseases of the digestive system; Z79.899 Other long term (current) drug therapy
CPT/HCPCS: 36415; 80048; 80307; 80320; 81001; 85025; G0480